=== PATIENT | male | born 1965 | race Caucasian/White ===

== ENCOUNTER 2023-06-01 14:28 | Emergency (ER) | payer MEDICARE, OTHER ==
[2023-06-01 14:41] LABS: Glucose,Whole Blood 210 mg/dL (70-110)
--- NOTE | 2023-06-01 15:12 | ED ---
CPR HPI - General Stated Complaint: Cardiac Arrest Time Seen by Provider: 06/01/23 14:30 Source: EMS, RN notes reviewed, old records reviewed Mode of arrival: EMS Limitations: no limitations - History of Present Illness Initial Comments: This is a 58-year-old male to the emergency department for evaluation. Patient presents today for evaluation of cardiac arrest. Patient is found to be in cardiac arrest on arrival to the emergency room. Per EMS patient collapsed during lunch. They for the stay patient was going to lunch after receiving dialysis today. Patient is a dialysis patient with significant history of heart disease. Patient no signs or symptoms prior to the event was not making any complaints per her daughter who is dinner with. Patient was shocked once per EMS intubated with good capnography. Patient did have one defibrillated rhythm. No neurological response MD Complaint: found unresponsive, stopped breathing, collapsed during rest (Patient was at lunch today) Place: street Bystander CPR Performed: Yes AED Applied by Bystander/General Lot Attendant: Yes Shock Advised: Yes Number of Shocks Delivered: 1 Initial Findings in the Field: unresponsive, no respirations, agonal, no pulse ROSC in the Field: No Associated Injuries: No Treatments Prior to Arrival: intubation, chest compressions, epinephrine mgs # - Related Data Allergies Allergy/AdvReac Type Severity Reaction Status Date / Time Unable to Assess Allergy Verified 06/01/23 17:12 Review of Systems ROS Statement: Those systems with pertinent positive or pertinent negative responses have been documented in the HPI. ROS Other: All systems not noted in ROS Statement are negative. General Exam Limitations: altered mental status, physical limitation General appearance: obtunded Head exam: Present: atraumatic Eye exam: Present: other (Pupils are fixed and dilated) ENT exam: Present: normal exam, mucous membranes moist Neck exam: Present: normal inspection Respiratory exam: Absent: normal lung sounds bilaterally (Apnea) Cardiovascular Exam: Absent: regular rate (Asystole) Course Vital Signs 06/01/23 14:29 Respiratory 22 Rate O2 Sat by Pulse 78 L Oximetry - Reevaluation(s) Reevaluation #1: 06/01/23 15:07 Record is reviewed ACLS protocol Reevaluation #2: 06/01/23 15:07 Spoke with patient and family at length, there were patient's condition, events surrounding conditioning questions are answered with family is updated, daughter at bedside Reevaluation #3: 06/01/23 15:08 Patient has no improvement in symptoms after 35 minutes of ACLS Patient has cardiac standstill on ultrasound Reevaluation #4: 06/01/23 15:05 Was pt. sent in by a medical professional or institution (MELINDA Pleitez, [employer], urgent care, hospital, or fdc...) When possible be specific @ -no Did you speak to anyone other than the patient for history (EMS, parent, family, police, friend...)? What history was obtained from this source @ -no Did you review nursing and triage notes (agree or disagree)? Why? @ -agree Are old charts reviewed (outside hosp., previous admission, EMS record, old EKG, old radiological studies, urgent care reports/EKG's, fdc records)? Report findings @ -yes Differential Diagnosis (chest pain, altered mental status, abdominal pain women, abdominal pain men, vaginal bleeding, weakness, fever, dyspnea, syncope, headache, dizziness, GI bleed, back pain, seizure, CVA, palpatations, mental health, musculoskeletal)? @ -prior EKG interpreted by me (3pts min.). @ -no X-rays interpreted by me (1pt min.). @ -no CT interpreted by me (1pt min.). @ -no U/S interpreted by me (1pt. min.). @ -no What testing was considered but not performed or refused? (CT, X-rays, U/S, labs)? Why? @ -none What meds were considered but not given or refused? Why? @ -none Did you discuss the management of the patient with other professionals (professionals i.e. MELINDA Pleitez, [employer], lab, RT, psych nurse, protective services social worker, certified orthotist/pedorthist, teacher, patient safety officer, leather case finisher)? Give summary @ -no Was smoking cessation discussed for >3mins.? @ -no Was critical care preformed (if so, how long)? @ -yes31 Were there social determinants of health that impacted care today? How? (Homelessness, low income, unemployed, alcoholism, drug addiction, transportation, low edu. Level, literacy, decrease access to med. care, care home, rehab)? @ -none Was there de-escalation of care discussed even if they declined (Discuss DNR or withdrawal of care, Hospice)? DNR status @ -no What co-morbidities impacted this encounter? (DM, HTN, Smoking, COPD, CAD, Cancer, CVA, ARF, Chemo, Hep., AIDS, mental health diagnosis, sleep apnea, morbid obesity)? @ -none Was patient admitted / discharged? Hospital course, mention meds given and route, prescriptions, significant lab abnormalities, going to OR and other pertinent info. @ - 58 male to the emergency department for evaluation of cardiac arrest with CPR. ACLS protocol and patient did pass away, patient is Patient is Undiagnosed new problem with uncertain prognosis? @ -no Drug Therapy requiring intensive monitoring for toxicity (Heparin, Nitro, Insulin, Cardizem)? @ -no Were any procedures done? @ -no Diagnosis/symptom? @ -Cardiac arrest Acute, or Chronic, or Acute on Chronic? @ -Acute Uncomplicated (without systemic symptoms) or Complicated (systemic symptoms)? @ -Complicated Side effects of treatment? @ -no Exacerbation, Progression, or Severe Exacerbation? @ -exacerbation Poses a threat to life or bodily function? How? (Chest pain, USA, SC, pneumonia, PE, COPD, DKA, ARF, appy, cholecystitis, CVA, Diverticulitis, Homicidal, Suicidal, threat to staff... and all critical care pts) @ -yes patient had ACLS protocol for cardiopulmonary arrest Reevaluation #5: 06/01/23 15:05 Differential Cardiac Arrest Hypoxia, Hypoglycemia, Hyperkalemia, Hypotension, H acidosis Trauma Tension Ptx, Cardiac Tamponade, Toxin, SC, PE Medical Decision Making - Medical Decision Making 58 male to the emergency department for evaluation of cardiac arrest with CPR. ACLS protocol and patient did pass away, patient is Patient pronounced at 1441 Ultrasound showing cardiac standstill Pupils fixed and dilated - Lab Data Lab Results 06/01/23 Range/Units 14:35 POC Glucose (mg/dL) 210 H (70-110) mg/dL POC Glu Warranty Coordinator ID Mya Reid - Radiology Data Radiology results: image reviewed (Ultrasound cardiac is cardiac standstill) Disposition Clinical Impression: Cardiac arrest Disposition: Condition: Critical Is patient prescribed a controlled substance at d/c from ED?: No Referrals: Carlos Lal MD [Primary Care Provider] - 1-2 days Preliminary Cause of : CPA
[2023-06-01 17:27] VITALS: RESP 22
== END 2023-06-01 19:41 | disposition expired ==
LOC: EC 14:28
DX: I46.9 Cardiac arrest, cause unspecified (principal); Z88.8 Allergy status to other drugs, medicaments and biological substances; Z99.2 Dependence on renal dialysis
CPT/HCPCS: 36415; 99285; 99291